=== PATIENT | female | born 1995 | race Caucasian/White ===

== ENCOUNTER 2016-11-26 19:50 | Emergency (ER) | payer MEDICAID ==
[~2016-11-26] VITALS: Ht 157.5 cm; Wt 52.9 kg
[~2016-11-26 19:50] MED LIST: BACT800T5 PO; IBUP-232 PO; ZOFR4TAB3 SL
[2016-11-26 20:00] VITALS: BP 130/73; PULSE 84; RESP 20; TEMP 98.4; O2SAT 100
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
[2016-11-26] MEDS ORDERED: PREN1TAB58 PO (21:02)
[2016-11-26 21:07] LABS: AUTOMATED NEUTROPHIL # 4.3 TH/MM3 (1.8-7.7); BASOPHIL # 0.1 TH/MM3 (0-0.2); BASOPHIL % 1.5 % (0.0-2.0); EOSINOPHIL # 0.1 TH/MM3 (0-0.4); EOSINOPHIL % 0.9 % (0.0-4.0); HEMATOCRIT 41.7 % (35.0-46.0); HEMO FLAGS DIFF FINAL; LYMPH % 27.2 % (9.0-44.0); LYMPHOCYTE # 1.9 TH/MM3 (1.0-4.8); MEAN CELL VOLUME 93.3 FL (80.0-100.0); MEAN CORPUSCULAR HEMOGLOBIN 31.3 PG (27.0-34.0); MEAN CORPUSCULAR HGB CONC 33.5 % (32.0-36.0); NEUT % 63.4 % (16.0-70.0); PLATELET COUNT 219 TH/MM3 (150-450); RED BLOOD COUNT 4.47 MIL/MM3 (4.00-5.30); WHITE BLOOD COUNT 6.9 TH/MM3 (4.0-11.0)
[2016-11-26 21:10] VITALS: BP 122/67; PULSE 72; RESP 18; O2SAT 98
[2016-11-26 21:25] LABS: BLOOD, URINE LARGE (NEG); GLUCOSE,URINE NEG (NEG); KETONE, URINE NEG (NEG); NITRITE,URINE NEG (NEG); PH, URINE 6.5 (5.0-8.5)
[2016-11-26 21:29] LABS: URINE COLOR YELLOW (YELLW/STRAW)
[2016-11-26 21:31] LABS: COMMENT (UR) CULT NOT INDICATED; CULTURE IF INDICATED CULT NOT INDICATED; SQUAMOUS EPITHELIAL CELL URINE 0-5 /hpf (0-5)
[2016-11-26 21:39] LABS: BETA HCG QUANT 949 MIU/ML (0-5)
[2016-11-26 22:10] VITALS: BP 119/73; PULSE 68; RESP 18; TEMP 99.1; O2SAT 99
[2016-11-26 23:30] VITALS: BP 122/68; PULSE 85; RESP 18; O2SAT 97
--- NOTE | 2016-11-26 23:46 | RADRPT ---
EXAM DATE/TIME: 11/26/2016 22:58 [facility] COMPARISON: No previous studies available for comparison. INDICATIONS : Bleeding with . LAB(S): Beta-[facility] MEDICAL HISTORY : . SURGICAL HISTORY : Tumor removal. ENCOUNTER: Initial ACUITY: 1 day PAIN SCORE: 0/10 LOCATION: Bilateral pelvis MEASUREMENTS: UTERUS: 9.5 x 5.8 x 4.6 cm ENDOMETRIAL STRIPE: 15 mm RIGHT OVARY: 3.1 x 1.9 x 1.8 cm LEFT OVARY: 3.8 x 4.0 x 3.9 cm FREE FLUID: Yes Trace adjacent to the fundus. CROWN RUMP LENGTH: Non visualized. = WKS DAYS FHR: Non visualized. BPM FINDINGS: UTERUS: An approximately 7 x 5 x 7 mm gestational sac is seen within the uterine cavity, too early to date. N o perceptible yolk sac or pole at this time. No subchorionic hemorrhage or other acute complica tion demonstrated. RIGHT OVARY: Ovary contains no mass or significant cystic lesion. LEFT OVARY: Complex mass measuring 3.3 cm seen in the left ovary, most likely a corpus luteal cyst. Features are not typical of ectopic. MISCELLANEOUS: Minuscule free fluid adjacent to the uterus. CONCLUSION: 1. Intrauterine , too early to date or further evaluate. No subchorionic hemorrhage or other acute uterine abnormality demonstrated. 2. Complex left ovarian mass which may be a corpus luteal cyst but overall nonspecific and followup p elvic ultrasound in 8-12 weeks suggested to confirm resolution. No evidence of ectopic. Jerome Lai MD on November 26, 2016 at 23:41 Board Certified Radiologist. This report was verified electronically.
[2016-11-27 00:22] VITALS: BP 114/61; TEMP 98.2
== END 2016-11-27 00:22 | disposition home or self-care (01) ==
LOC: PHED 19:50
DX: O20.0 Threatened abortion (principal); Z3A.01 Less than 8 weeks gestation of pregnancy
CPT/HCPCS: 76700; 76817; 81001; 84702; 85025; 86901; 99284

== ENCOUNTER → 2017-06-11 | Outpatient (CLI) | payer MEDICAID ==
[~2017-06-11] MED LIST changes: -BACT800T5 PO; -IBUP-232 PO; +PREN1TAB58 PO; -ZOFR4TAB3 SL
== END ==
LOC: HPND 08:55
PROVIDERS: ATTEND Obstetrics & Gynecology
DX: O26.892 Other specified pregnancy related conditions, second trimester (principal)
CPT/HCPCS: 76805

== ENCOUNTER 2017-08-22 23:26 | Emergency (ER) | payer MEDICAID ==
--- NOTE | 2017-08-23 00:04 | PD ---
HPI Chief Complaint Fell down Date Seen: Aug 22, 2017 Time Seen: 23:58 Travel History International Travel<30 Days: No Contact w/Intl Traveler<30Days: No Known Affected Area: No History of Present Illness HPI 22-year-old 2 para 1 at 29 weeks gestation who reports that she fell at work while walking in the kitchen. She fell on her left hip and had no abdominal impact whatsoever. She denies any bleeding, cramping or loss of fluid. She just wanted to have the baby checked on. 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 SKIN: Warm and dry. HEAD: Normocephalic and atraumatic. EYES: No scleral icterus. No injection or drainage. ENT: No nasal drainage noted. Mucous membranes pink. Airway patent. NECK: Supple, trachea midline. No JVD. ABDOMEN/GI: Abdomen soft, non-tender, bowel sounds present, no rebound, no guarding Gravid to [-] weeks size Fundal Height: [-] GENITOURINARY: External Genitalia: intact and normal in appearance BUS glands: [-] Cervix: [-] Dilatation: [-] Effacement: [-] Station: [-] Presentation: [-] Membranes: [intact] Uterine Contractions: [None-] FHT's: Category: [1-] Baseline: [-] Reactive: [Yes-] Variability: [-] Decels: [-] EXTREMITIES: No cyanosis or edema. BACK: Nontender without obvious deformity. No CVA tenderness. NEUROLOGICAL: Awake and alert. Motor and sensory grossly within normal limits. Five out of 5 muscle strength in all muscle groups. Normal speech. Data Data Vital Signs Reviewed: Yes MDM Medical Record Reviewed: Yes Narrative Course / MDM Assessment: 29 week intrauterine who fell without abdominal impact Plan: Routine precautions were reviewed and she'll follow up as scheduled for visits. Diagnosis Diagnosis: Primary Impression: 29 weeks gestation of Additional Impression: slip and fall Disposition: 01 DISCHARGE HOME Condition: Good Rubin Byrne MD Aug 23, 2017 00:03
[2017-08-23] MEDS ORDERED: DIAZEPAM 5 MG TAB PO PRN (00:15)
== END 2017-08-23 00:55 | disposition home or self-care (01) ==
LOC: HOBED 23:26
DX: Z03.79 Encounter for other suspected maternal and fetal conditions ruled out (principal); W01.0XXA Fall on same level from slipping, tripping and stumbling without subsequent striking against object, initial encounter; Z3A.29 29 weeks gestation of pregnancy
CPT/HCPCS: 99283